=== PATIENT | male | born 1995 | race Caucasian/White ===

== ENCOUNTER 2016-12-21 13:37 | Emergency (ER) | payer BC ==
[~2016-12-21] VITALS: Ht 177.8 cm; Wt 60.3 kg
[2016-12-21 13:38] VITALS: BP 122/61
[2016-12-21] MEDS: NAPROXEN 250 MG TAB PO ONE (14:40)
--- NOTE | 2016-12-21 15:21 | REP ---
RIGHT FIRST TOE, FOUR VIEWS: There is no evidence of an acute fracture, dislocation or intrinsic bone disease. IMPRESSION: No fracture or dislocation. Signed by Alton Peter MD 12/21/2016 08:20 P
[2016-12-21] MEDS ORDERED: NAPR500T PO (15:47)
== END 2016-12-21 15:56 | disposition home or self-care (01) ==
LOC: M ED 15:07
DX: S90.111A Contusion of right great toe without damage to nail, initial encounter (principal); W22.8XXA Striking against or struck by other objects, initial encounter; Y92.019 Unspecified place in single-family (private) house as the place of occurrence of the external cause; Y93.89 Activity, other specified; Y99.8 Other external cause status; M20.11 Hallux valgus (acquired), right foot; F41.9 Anxiety disorder, unspecified; F32.9 Major depressive disorder, single episode, unspecified; F17.200 Nicotine dependence, unspecified, uncomplicated; Z90.89 Acquired absence of other organs; Z88.0 Allergy status to penicillin; Z88.2 Allergy status to sulfonamides

== ENCOUNTER 2017-07-05 02:55 | Emergency (ER) | payer BC ==
[2017-07-05] MEDS: IBUPROFEN 800 MG TAB PO (05:23)
== END 2017-07-05 06:13 | disposition home or self-care (01) ==
LOC: M ED 02:55
DX: F43.0 Acute stress reaction (principal); F17.200 Nicotine dependence, unspecified, uncomplicated; F12.10 Cannabis abuse, uncomplicated
CPT/HCPCS: 99284

== ENCOUNTER 2019-03-20 03:13 | Emergency (ER) | payer BC ==
[~2019-03-20] VITALS: Ht 180.3 cm; Wt 59.1 kg
[2019-03-20 03:13] VITALS: BP 135/77
[~2019-03-20 03:13] MED LIST: NAPR-837 PO
[2019-03-20] MEDS ORDERED: CLIN150C14 PO (03:16)
[2019-03-20] MEDS ORDERED: ARTICAINE HCL/EPINEPHRINE 4%-1:200,000 1.7ML INJ (SEPTOCAINE) SM ONE (03:45)
[2019-03-20] MEDS ORDERED: BENZOCAINE 20% GEL 9GM TUBE (ANBESOL MAX STRENGTH) TOP ONE (03:45)
[2019-03-20] MEDS ORDERED: KETOROLAC 30 MG/ML VIAL (J1885) IM ONE (03:45)
[2019-03-20] MEDS ORDERED: CLEO300C2 PO (04:02)
== END 2019-03-20 04:06 | disposition home or self-care (01) ==
LOC: M ED 03:13
DX: K04.7 Periapical abscess without sinus (principal); S02.5XXA Fracture of tooth (traumatic), initial encounter for closed fracture; X58.XXXA Exposure to other specified factors, initial encounter; Y92.89 Other specified places as the place of occurrence of the external cause; Z88.0 Allergy status to penicillin; Z88.1 Allergy status to other antibiotic agents; Z88.2 Allergy status to sulfonamides; F17.200 Nicotine dependence, unspecified, uncomplicated
CPT/HCPCS: 64400; 96372; 99283; J1885

== ENCOUNTER 2020-11-06 18:59 | Emergency (ER) | payer BC ==
[~2020-11-06] VITALS: Ht 180.3 cm; Wt 67.7 kg
[~2020-11-06 18:59] MED LIST changes: +CLEO300C2 PO; +CLIN150C15 PO
[2020-11-06] MEDS ORDERED: NS 1,000 ML IV ONE (20:45)
--- NOTE | 2020-11-06 20:45 | ECGEPIP ---
[facility] - ED Test Date: 2020-11-06 Pat Name: COLTON POLLARD Department: Room: - Gender: Male Associate [employer]: SR : 1995 Requested By: JIA Soto Order Number: [id number] Reading MD: Divine Guallpa Measurements Intervals [place] Rate: 44 P: 65 OR: 194 QRS: 100 QRSD: 116 T: 88 QT: 428 QTc: 365 Interpretive Statements Marked sinus bradycardia Rightward axis No prior Electronically Signed on 11-06-2020 20:44:28 EDT by Divine Guallpa
--- NOTE | 2020-11-06 20:58 | REPVR ---
PROCEDURE INFORMATION: Exam: CT Head Without Contrast Exam date and time: 11/06/2020 8:30 PM Age: 25 years old Clinical indication: Syncope and collapse TECHNIQUE: Imaging protocol: Computed tomography of the head without contrast. Radiation optimization: All CT scans at this facility use at least one of these dose optimization techniques: automated exposure control; mA and/or kV adjustment per patient size (includes targeted exams where dose is matched to clinical indication); or iterative reconstruction. COMPARISON: No relevant prior studies available. FINDINGS: Brain: Normal. No hemorrhage. Unremarkable white matter. No mass effect. Cerebral ventricles: No ventriculomegaly. Bones/joints: Unremarkable. No acute fracture. Paranasal sinuses: Visualized sinuses are unremarkable. No fluid levels. Mastoid air cells: Visualized mastoid air cells are well aerated. Soft tissues: Unremarkable. IMPRESSION: No acute intracranial abnormality. Electronically signed by: Joselin Ryan On 11/06/2020 20:57:32 PM
--- NOTE | 2020-11-06 20:58 | REPVR ---
PROCEDURE INFORMATION: Exam: XR Chest Exam date and time: 11/06/2020 8:35 PM Age: 25 years old Clinical indication: Other: Syncope/near-syncope TECHNIQUE: Imaging protocol: XR of the chest. Views: 1 view. COMPARISON: No relevant prior studies available. FINDINGS: Lungs: Lungs appear hyperinflated. No focal lung consolidation. Pleural spaces: No pneumothorax or pleural effusion. Heart/Mediastinum: Cardiomediastinal silhouette is normal. Bones/joints: Minimal scoliosis. IMPRESSION: No acute findings. Electronically signed by: Joselin Ryan On 11/06/2020 20:58:41 PM
[2020-11-06 20:59] LABS: BASO % 0.4 % (0.0-1.0); EOS # 0.1 10^3/uL (0.0-0.5); EOS % 0.6 % (0.0-3.0); HEMATOCRIT 45.3 % (42.0-52.0); HEMOGLOBIN 15.4 g/dl (13.5-17.5); LYMPH # 2.6 10^3/uL (1.5-5.0); LYMPH % 28.4 % (24.0-44.0); MEAN CORPUSCULAR HEMOGLOBIN 31.4 pg (27.0-33.0); MEAN CORPUSCULAR VOLUME 92.4 fl (80.0-96.0); MONO # 0.6 10^3/uL (0.0-0.8); MONO % 6.9 % (2.0-8.0); NEUTROPHILS # 5.9 10^3/uL (1.5-8.5); NEUTROPHILS % 63.5 % (36.0-66.0); PLATELET COUNT, AUTOMATED 214 10^3/uL (150-450); WHITE BLOOD COUNT 9.3 10^3/uL (4.0-10.0)
[2020-11-06 21:29] LABS: AMPHETAMINES LEVEL URINE NEGATIVE (NEGATIVE); BARBITURATES URINE NEGATIVE (NEGATIVE); BENZODIAZEPINES URINE NEGATIVE (NEGATIVE); CANNABINOIDS URINE POSITIVE (NEGATIVE); COCAINE METABOLITE URINE NEGATIVE (NEGATIVE); METHADONE URINE NEGATIVE (NEGATIVE); OPIATES URINE NEGATIVE (NEGATIVE); PHENCYCLIDINE URINE NEGATIVE (NEGATIVE)
[2020-11-06 21:39] LABS: BLOOD UREA NITROGEN 12 MG/DL (7-18); CALCIUM LEVEL 8.9 MG/DL (8.5-10.1); CARBON DIOXIDE LEVEL 29 MEQ/L (21-32); CHLORIDE LEVEL 104 MEQ/L (98-107); CREATININE FOR GFR 0.81 MG/DL (0.70-1.30); ETHYL ALCOHOL (ETHANOL) < 0.003 % (0.000-0.010); FREE T4 1.15 NG/DL (0.76-1.46); GLOMERULAR FILTRATION RATE > 60.0 (>60); GLUCOSE, FASTING 83 MG/DL (70-100); MAGNESIUM LEVEL 2.2 MG/DL (1.8-2.4); POTASSIUM SERUM 4.1 MEQ/L (3.5-5.1); SODIUM LEVEL 139 MEQ/L (136-145)
[2020-11-06 23:15] VITALS: BP 114/68
== END 2020-11-06 22:50 | disposition home or self-care (01) ==
LOC: M ED 18:59
DX: I95.1 Orthostatic hypotension (principal); R00.1 Bradycardia, unspecified; F17.290 Nicotine dependence, other tobacco product, uncomplicated; F12.10 Cannabis abuse, uncomplicated; Z88.0 Allergy status to penicillin; Z88.2 Allergy status to sulfonamides; Z79.899 Other long term (current) drug therapy

== ENCOUNTER 2022-10-19 12:41 | Emergency (ER) | payer BC ==
[~2022-10-19] VITALS: Ht 177.8 cm; Wt 63.9 kg
[~2022-10-19 12:41] MED LIST changes: -CLIN150C15 PO; +CLIN150C17 PO
[2022-10-19 12:42] VITALS: BP 100/76
[2022-10-19] MEDS ORDERED: IBUP-1022 PO (13:45)
== END 2022-10-19 14:15 | disposition home or self-care (01) ==
LOC: M ED 12:41
DX: M72.2 Plantar fascial fibromatosis (principal); G40.909 Epilepsy, unspecified, not intractable, without status epilepticus; F60.3 Borderline personality disorder; F41.9 Anxiety disorder, unspecified; F32.A Depression, unspecified; F12.10 Cannabis abuse, uncomplicated; Z88.0 Allergy status to penicillin; Z88.1 Allergy status to other antibiotic agents; Z79.1 Long term (current) use of non-steroidal anti-inflammatories (NSAID)

== ENCOUNTER 2023-09-01 09:17 | Emergency (ER) | payer BC, MEDICAID, OTHER ==
[~2023-09-01] VITALS: Ht 177.8 cm; Wt 61.6 kg
[~2023-09-01 09:17] MED LIST changes: +IBUP-1022 PO
[2023-09-01 09:20] VITALS: BP 150/85; TEMP 97.9; O2SAT 100
== END 2023-09-01 12:17 | disposition left against medical advice (07) ==
LOC: M ED 09:17
DX: Z53.21 Procedure and treatment not carried out due to patient leaving prior to being seen by health care provider (principal)